=== PATIENT | female | born 1975 | race Caucasian/White ===

== ENCOUNTER 2022-06-22 | Emergency (ER) | payer OTHER ==
[~2022-06-22] VITALS: Ht 177.8 cm; Wt 109.1 kg
[2022-06-22] MEDS ORDERED: QUET100T PO (00:03)
[2022-06-22] MEDS ORDERED: ESCI-8 PO (00:03)
[2022-06-22] MEDS ORDERED: OMEP20 PO (00:03)
[2022-06-22 00:30] VITALS: BP 133/82
[2022-06-22] MEDS ORDERED: LIDOCAINE 5% TRANSDERMAL PATCH TD ONE (00:45)
[2022-06-22] MEDS ORDERED: ACETAMINOPHEN 500 MG TABLET PO ONE (00:45)
== END 2022-06-22 02:23 | disposition home or self-care (01) ==
LOC: EMS
DX: S29.011A Strain of muscle and tendon of front wall of thorax, initial encounter (principal); R07.89 Other chest pain; F31.9 Bipolar disorder, unspecified; K21.9 Gastro-esophageal reflux disease without esophagitis; X58.XXXA Exposure to other specified factors, initial encounter; Y93.89 Activity, other specified; Y92.89 Other specified places as the place of occurrence of the external cause; Y99.8 Other external cause status
CPT/HCPCS: 99283